=== PATIENT | female | born 1980 | race Caucasian/White ===

== ENCOUNTER 2016-09-22 07:09 | Emergency (ER) | payer OTHER ==
[2016-09-22 08:26] VITALS: BP 134/87
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
== END 2016-09-22 08:29 | disposition home or self-care (01) ==
LOC: ER 07:09
DX: S46.912A Strain of unspecified muscle, fascia and tendon at shoulder and upper arm level, left arm, initial encounter (principal); X58.XXXA Exposure to other specified factors, initial encounter; Y93.89 Activity, other specified; Y92.129 Unspecified place in nursing home as the place of occurrence of the external cause; Y99.0 Civilian activity done for income or pay; Z3A.30 30 weeks gestation of pregnancy; Z90.49 Acquired absence of other specified parts of digestive tract; M54.5 Low back pain

== ENCOUNTER 2016-10-28 06:57 | Observation (INO) | payer OTHER ==
--- OUTSIDE RECORDS SUMMARY | 2016-10-28 07:02 | XMS REPORT | Continuity of Care Document ---
:1980 Author Organization [facility] ([facility]) Address [address] [place] [address] Phone [phone] Care Team Providers Name Role Phone Fatmata Caraballo Primary Care Provider [phone] Source Comments This disclosure is being made pursuant to the Care Everywhere program, applicable federal and state laws, and may not contain all informaitonavailable regarding this patient.[facility] ([facility]) Active Allergies and Adverse Reactions Allergen Noted Date Severity Reactions Comments Codeine 01/31/2015 Nausea & Vomiting,Pruritus Current Medications Prescription Sig. Disp. Refills Start Date End Date Status multivitamin Take 2 Each by Active with minerals PO mouth. Gummies famotidine 10 mg tablet Take 10 mg by Active mouth 2 times daily pantoprazole 20 mg EC Take 20 mg by Active tablet mouth daily promethazine 12.5 mg Insert 25 mg Active suppository rectally every 6 hours as needed. promethazine 12.5 mg Take 25 mg by Active tablet mouth every 6 hours as needed. albuterol 90 Use 2 Puffs by Active mcg/Actuation inhaler inhalation every 6 hours as needed metoclopramide 10 mg Take 10 mg by Active tablet mouth 3 times daily. beclomethasone (QVAR) Use 1 Puff by Active 80 mcg/Actuation inhalation 2 inhaler times daily. 1 puff 2x/day cyclobenzaprine 5 mg Take 1 tablet (5 15 tablet 0 08/27/2016 Active tablet mg total) by mouth 3 times daily as needed. miscellaneous medical belt 1 Each 0 08/27/2016 Active supply use as directed Active Problems Problem Noted Date Dichorionic diamniotic twin gestation 06/14/2016 Advanced maternal age in multigravida 06/14/2016 History of delivery affecting 06/14/2016 Currently Estimated Date of Delivery Comments Yes 12/15/2016 Based on Last Menstrual Period Most Recent Encounters Date Type Specialty Providers Description 10/23/2016 Office Visit Maternal Chief Comp: Patient Medicine Reported Reason For Visit 10/23/2016 Office Visit Maternal Chief Comp: Patient Medicine Reported Reason For Visit 10/18/2016 Telephone Maternal Kirsten Wang, Dx: Dichorionic Medicine RN diamniotic twin , antepartum (Primary Dx) 08/30/2016 Telephone Pediatric Sherie Cabrera RN Chief Comp: Cardiology Follow-up 08/28/2016 Office Visit Maternal Chief Comp: Patient Medicine Reported Reason For Visit 08/27/2016 Office Visit Maternal Diamond Ddod, Dx: Low back pain Medicine DO during in Clinic, Hrob New second trimester Patient (Primary Dx) 08/27/2016 Hospital Encounter Pediatric Sterling Win Dx: Dichorionic Cardiology MD Josy diamniotic twin in first trimester 08/27/2016 Hospital Encounter Pediatric Sterling Win Dx: Dichorionic Cardiology MD Josy diamniotic twin in first trimester 08/27/2016 Hospital Encounter Pediatric Sterling Win Dx: Dichorionic Cardiology MD Josy diamniotic twin in first trimester 08/27/2016 Office Visit Maternal Cristine Amaya Dx: Advanced Medicine maternal age in multigravida, second trimester (Primary Dx) 08/27/2016 Hospital Encounter Obstetrics Cristine Amaya Dx: Dichorionic diamniotic twin in first trimester 08/27/2016 Ancillary Orders Obstetrics Aaron Kramer, Dx: Dichorionic diamniotic twin in second trimester (Primary Dx) 07/30/2016 Office Visit Maternal Jennifer Mcintosh I Chief Comp: Patient Medicine Reported Reason For Visit 07/30/2016 Hospital Encounter Obstetrics Jennifer Mcintosh I Dx: Dichorionic diamniotic twin in first trimester Social History Tobacco Use Types Packs/Day Years Used Date Former Smoker Cigarettes Quit: 08/15/2014 Smokeless Tobacco: Former User Alcohol Use Drinks/Week oz/Week Comments No 0 Standard drinks or equivalent 0.0 Last Filed Vital Signs Vital Sign Reading Time Taken Blood Pressure 120/67 08/27/2016 1:41 PM CUT PLUG PACKER Pulse 89 08/27/2016 1:41 PM CUT PLUG PACKER Temperature 36.6 C (97.9 F) 08/27/2016 1:41 PM C[employer] PLUG PACKER Respiratory Rate - - Height 1.589 m (5' 2.56") 08/27/2016 1:41 PM CUT PLUG PACKER Weight 70.8 kg (156 lb 1.4 oz) 08/27/2016 1:41 PM C[employer] PLUG PACKER Body Mass Index 28.04 08/27/2016 1:41 PM CUT PLUG PACKER Oxygen Saturation - - Plan of Care Date Type Specialty Providers Description 11/06/2016 Appointment Maternal Medicine Chief Comp: Patient Reported Reason For Visit 11/06/2016 Appointment Obstetrics Chief Comp: Patient Reported Reason For Visit Health Maintenance Due Date Last Done Comments Hepatitis B Vaccine (1 of 3 - Primary Series) 1980 Tdap Vaccine 12/06/1990 Lipid Disorder Screening 12/06/1997 MMR Vaccine 12/06/1997 Td Vaccine 12/06/1997 Varicella Vaccine (1 of 2 - Adult - No Evidence of 12/06/1997 Immunity) Cervical Cancer Screening 12/06/2009 Influenza Vaccine: Seasonal (#1) 04/15/2016 Results from Last 3 Months ECHO PEDS - ECHOCARDIOGRAM (08/27/2016 1:45 PM)Only the most recent of2 resultswithin the time period is included. Component Value Range Interpretation Summary Normal cardiac anatomy in views obtained. Normal biventricular size and function. No tricuspid valve regurgitation. No mitral valve regurgitation. Atria and Atrial Septum Flap of foramen ovale enters the left atrium. Normal left atrial size Normal right atrial size Right to left shunt seen at atrial level. Rhythm Twin B HR 153 bpm. with 1:1 AV conduction. Situs, Cardiac Position and Pulmonary Situs solitus. and Systemic Veins Levocardia The superior and inferior vena cava appear normal. Great Vessels and Ventricular-Arterial Normal left ventricular outflow tract. Connections Normal right ventricular outflow tract, pulmonary valve, main pulmonary artery and branch pulmonary arteries. Concordant ventriculoarterial connections. Ascending aortic velocity normal No aortic valve regurgitation. Normal flow velocities in the main, right and left pulmonary arteries. No pulmonic valve regurgitation. Atrioventricular Valves and AV Valve The mitral valve is normal. Function Two mitral valve papillary muscles seen. The tricuspid valve is normal. Concordant atrioventricular connections. No mitral valve regurgitation. No tricuspid valve regurgitation. Ventricles and Interventricular Septum The right ventricle is normal in size and systolic function. No ventricular septal defect seen in views obtained. The left ventricle is normal in size and systolic function. Aortic Arch/Paten Ductus Normal aortic and ductal arches. Ateriosus/Coronary Arteries Attributes Fetus at 24 2/7 weeks gestation. Expected date of delivery 12/15/2016. Multigestational 'Twins' . heart/chest ratio=0.5. Cardiac Artemas=50 degrees . Normal flow velocity and pattern in umbilical artery and vein. No hydrops seen. Thin rim of pericardial effusion seen. Primary ICD-9 Code 24 weeks gestation of (Z3A.24) Abnormality Affecting Mother's Care or Other Known/Supsected Abnormality, unspecified, multiple gestation, fetus 2 (O35.8XX2) Procedures PW and CW Doppler peformed as part of this study. Doppler assessment of Color Flow mapping performed as part of this study. 2D Echo performed as part of this study. Quality Comments Adequate images obtained. Patient's name and date were confirmed. MV lanre diam 0.63 cm MV lanre area 0.31 cm^2 TV lanre diam 0.57 cm MV E max mackenzie 25.7 cm/sec MV A max mackenzie 37.3 cm/sec MV E/A 0.69 Ao V2 max 93.5 cm/sec Ao max PG 3.5 mmHg TV E max mackenzie 26.3 cm/sec TV A max mackenzie 36.1 cm/sec TV E/A 0.73 PA V2 max 44.0 cm/sec PA max PG 0.77 mmHg Reason For Study Di Di twins and had FDT u/s to check nuchal measurements on , fetus A with thickened nuchal translucency Porcelain Enamel Repairer Flor Edmonds Interpreting Physician Sterling Win MD electronically signed on 2016-08-27 17:08:[id number] TRANSLATOR/INTERPRETER/ DIAGNOSIS ULTRASOUND (08/27/2016 10:27 AM)Only the most recent of2 resultswithin the time period is included. Narrative Obstetric Ultrasound Report Limited Scan Ref[facility] from: [facility] [address] Department of Obstetrics & Gynecology [place], [id number] [employer] [place], [id number] OB Clinic IVF/ Endocrine PATIENT INFORMATION: Name: KATIE MLYES#: [id number] Age:35 y/oExam Date: 08/27/2016 :1980 Visit #: 4 LMP:03/10/2016 Location: Diagnosis & Treatment Unit # Fetuses: 2 INDICATION:Dichorionic/Diamniotic twin gestation. Increased nuchal tranlucency of twin A. Growth and complete anatomy, TWINA Left, Inferior DATING: Assigned GA GA by LMPGA by US (LMP)JORDAN 24 2/7 wks 23 2/7 wks 24 2/7 wks 12/15/16 BIOMETRY: BPD: 57.1 mm23 3/7 wksHC:212.1 mm 23 2/7 wks(8%) (28%) Femur: 40.6 mm23 1/7 wksAC:203.9 mm 25 0/7 wks(59%) (10%) EFW: 683 gms1 lbs 8 oz (47%) Lat Ventricles: 6.2 mm Heart Rate: 147 bpm FL/AC:0.2FL/BPD: 0.71 PRESENTATION/CORD/PLACENTA/FLUID/CERVIX: Presentation: Breech Placenta: Posterior.There Is No Evidence Of Placenta Previa. Amniotic Fluid: Maximum Vertical Pocket=58 mm.Subjective AF Volume : Normal. Cervix: Overall Length:55mm, Normal ANATOMICAL SURVEY: Normal ------ Lateral Ventricles Palate Nose Lips Four Chamber ViewCardiac Artemas Cardiac Position Heart Rate DiaphragmStomach Kidney - LeftKidney - Right Bladder Abnormal -------- None identified TWINB Right, Superior DATING: Assigned GA GA by LMPGA by US (LMP)JORDAN 24 27 wks 22 7 wks 24 /7 wks 12/15/16 BIOMETRY: BPD: 53.4 mm22 2/7 wksHC:206.4 mm 22 5/7 wks(<3%) (<3%) Femur: 41.1 mm23 2/7 wksAC:185.0 mm 23 2/7 wks(13%) (15%) EFW: 594 gms1 lbs 5 oz (28%) Lat Ventricles: 5.9 mm Heart Rate: 132 bpm FL/AC:0.22 FL/BPD: 0.76 PRESENTATION/CORD/PLACENTA/FLUID/CERVIX: Presentation: Cephalic Placenta: Posterior.There Is No Evidence Of Placenta Previa. Amniotic Fluid: Maximum Vertical Pocket=50 mm.Subjective AF Volume : Normal. Cervix: Overall Length:55mm, Normal ANATOMICAL SURVEY: Normal ------ Lateral Ventricles Four Chamber View RVOT LVOT Cardiac Artemas Cardiac Position Heart Rate Diaphragm StomachKidney - Left Kidney - Right Bladder Foot - LeftFoot - Right Not Visualized Palate Nose Lips Abnormal -------- None identified EFW Summary Table Exam DateFetus #EFW Percentile ------ - 08/27/16 1 74400 % 08/27/16 2 26979 % 07/30/16 1 79915 % 07/30/16 2 83887 % AMNIOTIC FLUID VOLUME: Fetus A NORMALSubjective AF Volume: Normal.Maximum Vertical Pocket:58 mm Fetus B NORMALSubjective AF Volume: Normal.Maximum Vertical Pocket:50 mm CERVIX: Visualized Overall Length:55 mm Cervical Evaluation: Yes Cervical Approach: Transabdominal MULTIPLE GESTATION: Weight discordance:13% (Normal <20%).Dividing membrane was seen. Placentation is dichorionic, diamniotic. COMMENTS: I attest to having personally viewed the images and my comments and impression are as follows: The exam was limited to growth, fluid and limited anatomy. Dichorionic, diamniotic twin gestation. Twin IUP with concordant growth (14%). Twin A: The anatomical survey was completed on today's ultrasound. Twin B: The palate and lips were suboptimally visualized. Appropriate amniotic fluid around each twin. Recommend follow up growth ultrasounds monthly. This may be done locally or at [facility]. HROB and wellness appointments made. Mrs. Katie Merida is a 35 y/o patient status post two deliveries, now with di-di twins.This ultrasound is for a growth check.She is now 24 and 2/7 weeks gestation.The twins are condordant and well grown.The fluid is normal for both twins, and the placentas are posterior. The patient had questions about risks of twins, back pain, depression and one episode of blurry vision (blood pressure not checked).I offered her a one time consultation with our high risk and women's wellness clinic.Otherwise, she plans to continue to follow locally. Given her AMA status and di-di twins, we recommend monthly ultrasounds for growth and beginning weekly modified BPPs (NSTs with AFIs) weekly between 30 and 32 weeks.Those studies can be performed locally or at this institution, whichever is preferred. I spent 15 minutes in care coordination, of which more than 50% was in face to face counseling. Dr. Cristine Amaya MD ([id number]) Dr. Mgaalie Zuniga MD ([id number]) Porcelain Enamel Repairer: Susan Starks RDMS RVT Procedure Note Michael, Incoming Imaging Results - FriAug 27, 2016 10:40 AM CUT PLUG PACKER Obstetric Ultrasound Report Limited Scan Referral from: Dr. Fatmata Caraballo [facility] [address] Department of Obstetrics &[place] [address] [address] [place], [place] OB Clinic IVF/ Endocrine PATIENT INFORMATION: Name: KATIE MERIDA MR#: [id number] Age: 35 y/o Exam Date: 08/27/2016 : 1980 Visit #: 4 LMP: 03/10/2016 Location: Diagnosis & Treatment Unit # Fetuses: 2 INDICATION: Dichorionic/Diamniotic twin gestation. Increased nuchal tranlucency of twin A. Growth and complete anatomy, TWIN A Left, Inferior DATING: Assigned GA GA by LMP GA by US (LMP) JORDAN 24 2/7 wks 23 2/7 wks 24 2/7 wks 12/15/16 BIOMETRY: BPD: 57.1 mm 23 3/7 wks HC: 212.1 mm 23 2/7 wks (8%) (28%) Femur: 40.6 mm 23 1/7 wks AC: 203.9 mm 25 0/7 wks(59%) (10%) EFW: 683 gms 1 lbs 8 oz (47%) Lat Ventricles: 6.2 mm Heart Rate: 147 bpm FL/AC: 0.2 FL/BPD: 0.71 PRESENTATION/CORD/PLACENTA/FLUID/CERVIX: Presentation: Breech Placenta: Posterior. There Is No Evidence Of Placenta Previa. Amniotic Fluid: Maximum Vertical Pocket=58 mm. Subjective AFVolume: Normal. Cervix: Overall Length: 55mm, Normal ANATOMICAL SURVEY: Normal ------ Lateral Ventricles Palate Nose Lips Four Chamber View Cardiac Artemas Cardiac Position Heart Rate Diaphragm Stomach Kidney - Left Kidney - Right Bladder Abnormal -------- None identified TWIN B Right, Superior DATING: Assigned GA GA by LMP GA by US (LMP) JORDAN 24 10/22 wks 22 12/20 wks 24 10/22 wks 12/15/16 BIOMETRY: BPD: 53.4 mm 22 7 wks HC: 206.4 mm 22 01/19 wks(<3%) (<3%) Femur: 41.1 mm 23 10/22 wks AC: 185.0 mm 23 10/22 wks(13%) (15%) EFW: 594 gms 1 lbs 5 oz (28%) Lat Ventricles: 5.9 mm Heart Rate: 132 bpm FL/AC: 0.22 FL/BPD: 0.76 PRESENTATION/CORD/PLACENTA/FLUID/CERVIX: Presentation: Cephalic Placenta: Posterior. There Is No Evidence Of Placenta Previa. Amniotic Fluid: Maximum Vertical Pocket=50 mm. Subjective AFVolume: Normal. Cervix: Overall Length: 55mm, Normal ANATOMICAL SURVEY: Normal ------ Lateral Ventricles Four Chamber View RVOT LVOT Cardiac Artemas Cardiac Position Heart Rate Diaphragm Stomach Kidney - Left Kidney - Right Bladder Foot - Left Foot - Right Not Visualized Palate Nose Lips Abnormal -------- None identified EFW Summary Table Exam Date Fetus # EFW Percentile --------- ------- ---- 08/27/16 1 683 47 % 08/27/16 2 594 28 % 07/30/16 1 350 48 % 07/30/16 2 334 42 % AMNIOTIC FLUID VOLUME: Fetus A NORMAL Subjective AF Volume: Normal. Maximum Vertical Pocket: 58 mm Fetus B NORMAL Subjective AF Volume: Normal. Maximum Vertical Pocket: 50 mm CERVIX: Visualized Overall Length: 55 mm Cervical Evaluation: Yes Cervical Approach: Transabdominal MULTIPLE GESTATION: Weight discordance: 13% (Normal <20%). Dividing membrane was seen. Placentation is dichorionic, diamniotic. COMMENTS: I attest to having personally viewed the images and my comments and impression are as follows: The exam was limited to growth, fluid and limited anatomy. Dichorionic, diamniotic twin gestation. Twin IUP with concordant growth (14%). Twin A: The anatomical survey was completed on today's ultrasound. Twin B: The palate and lips were suboptimally visualized. Appropriate amniotic fluid around each twin. Recommend follow up growth ultrasounds monthly. This may be donelocally or at [facility]. HROB and wellness appointments made. Mrs. Katie Merida is a 35 y/o patient status post two deliveries, now with di-di twins. This ultrasound is for a growth check. She is now 24 and 2/7 weeks gestation. The twins are condordant and well grown. The fluid is normal for both twins, and the placentas are posterior. The patient had questions about risks of twins, back pain, depression and one episode of blurry vision (blood pressure not checked). I offered her a one time consultation with our high risk and women's wellness clinic. Otherwise, she plans to continue to follow locally. Given her AMA status and di-di twins, we recommend monthly ultrasounds for growth and beginning weekly modified BPPs (NSTs with AFIs) weekly between 30 and 32 weeks. Those studies can be performed locally or at this institution, whichever is preferred. I spent 15 minutes in care coordination, of which more than 50% was in face to face counseling. Dr. Cristine Amaya MD ([id number]) Dr. Magalie Zuniga MD ([id number]) Porcelain Enamel Repairer: Susan Starks RDMS T
[2016-10-28] MEDS ORDERED: RINGERS SOLUTION,LACTATED 1,000 ML IV ONE (07:22)
[2016-10-28 08:15] LABS: Urine Bilirubin Negative (NEGATIVE); Urine Ketone Negative (NEGATIVE); Urine Nitrite Negative (NEGATIVE); Urine Protein Negative (NEGATIVE); Urine Specific Gravity 1.015 SP.GR. (1.005-1.010); Urine Urobilinogen Normal (NORMAL)
[2016-10-28 08:50] LABS: Urine Appearance Clear; Urine Blood 10 /ul (NEGATIVE); Urine Color Yellow
[2016-10-28 08:51] LABS: Urine Bacteria 1+; Urine RBC TRACE /hpf (0-5); Urine Squamous Epithelial Cell None Seen /hpf; Urine WBC None Seen /hpf (0-5)
[2016-10-28] MEDS ORDERED: HYDROcodone/ACETAMINOPHEN 1 EACH TABLET PO ONE (10:00)
[2016-10-28] MEDS ORDERED: hydrOXYzine PAMOATE 25 MG CAPSULE PO ONE (10:00)
--- OUTSIDE RECORDS SUMMARY | 2016-10-28 12:10 | XMS REPORT | Continuity of Care Document ---
:1980 Author Organization [facility] ([facility]) Address [address] [place] [address] Phone [phone] Care Team Providers Name Role Phone Fatmata Caraballo Primary Care Provider [phone] Source Comments This disclosure is being made pursuant to the Care Everywhere program, applicable federal and state laws, and may not contain all informaitonavailable regarding this patient.[facility] ([facility]) Active Allergies and Adverse Reactions Allergen Noted [...] Recent Encounters Date Type Specialty Providers Description 10/28/2016 Hospital Encounter Patient Services 10/23/2016 Office Visit Maternal Chief Comp: Patient [...] For Visit 08/27/2016 Office Visit Maternal Diamond Dodd, Dx: Low back pain Medicine DO during in Clinic, Hrob New second trimester Patient (Primary Dx) 08/27/2016 Hospital Encounter Pediatric Sterling Win Dx: Dichorionic Cardiology MD Josy diamniotic twin in first trimester 08/27/2016 Hospital Encounter Pediatric Sterling Win Dx: Dichorionic Cardiology MD Josy diamniotic twin in first trimester 08/27/2016 Hospital Encounter Pediatric Sterling Win Dx: Dichorionic Lizzette Ferris MD diamniotic twin in first trimester 08/27/2016 Office Visit Maternal Cristine Amaya Dx: Advanced Medicine maternal age in multigravida, second trimester (Primary Dx) 08/27/2016 Hospital Encounter Obstetrics Cristine Amaya Dx: Dichorionic diamniotic twin in first trimester 08/27/2016 Ancillary Orders Obstetrics Aaron Kramer Dx: Dichorionic diamniotic twin in second trimester (Primary Dx) 07/30/2016 Office Visit Maternal Jennifer Mcintosh I Chief Comp: Patient Medicine MD Reported Reason For Visit 07/30/2016 Hospital Encounter Obstetrics Jennifer Mcintosh I Dx: Dichorionic diamniotic twin in first trimester Social History Tobacco Use Types Packs/Day Years Used Date Former Smoker Cigarettes Quit: 08/15/2014 Smokeless Tobacco: Former User Alcohol Use Drinks/Week oz/Week Comments No 0 Standard drinks or equivalent 0.0 Last Filed Vital Signs Vital Sign Reading Time Taken Blood Pressure 120/67 08/27/2016 1:41 PM GUEST EXPERIENCE REPRESENTATIVE Pulse 89 08/27/2016 1:41 PM GUEST EXPERIENCE REPRESENTATIVE Temperature 36.6 C (97.9 F) 08/27/2016 1:41 PM GUEST EXPERIENCE REPRESENTATIVE Respiratory Rate - - Height 1.589 m (5' 2.56") 08/27/2016 1:41 PM GUEST EXPERIENCE REPRESENTATIVE Weight 70.8 kg (156 lb 1.4 oz) 08/27/2016 1:41 PM GUEST EXPERIENCE REPRESENTATIVE Body Mass Index 28.04 08/27/2016 1:41 PM GUEST EXPERIENCE REPRESENTATIVE Oxygen Saturation - - Plan of Care [...] 12/15/2016. Multigestational 'Twins' . heart/chest ratio=0.5. Cardiac [place]=50 degrees . Normal flow velocity and pattern [...] , fetus A with thickened nuchal translucency Supervisor Cloth Winding Flor Edmonds Interpreting Physician Sterling Win MD electronically signed on 2016-08-27 17:08:[id number] SPANISH LECTURER/ DIAGNOSIS ULTRASOUND (08/27/2016 10:27 AM)Only the most recent of2 resultswithin the time period is included. Narrative Obstetric Ultrasound Report Limited Scan [facility]: [facility] [address] Department of Obstetrics & Gynecology [place], [id number] [facility] [id number] OB Clinic IVF/ Endocrine PATIENT INFORMATION: Name: KATIE MYLES#: [id number] Age:35 y/oExam Date: 08/27/2016 :1980 Visit #: [...] Ventricles Palate Nose Lips Four Chamber ViewCardiac [place] Cardiac Position Heart Rate DiaphragmStomach Kidney - LeftKidney - Right Bladder Abnormal -------- None identified TWINB Right, Superior DATING: Assigned GA GA by LMPGA by US (LMP)JORDAN 24 7 wks 22 7 wks 24 7 wks 12/15/16 BIOMETRY: BPD: 53.4 mm22 2/7 [...] Ventricles Four Chamber View RVOT LVOT Cardiac [place] Cardiac Position Heart Rate Diaphragm StomachKidney - Left Kidney - Right Bladder Foot - LeftFoot - Right Not Visualized Palate Nose Lips Abnormal -------- None identified EFW Summary Table Exam DateFetus #EFW Percentile ------ - 08/27/16 1 70057 % 08/27/16 2 36231 % 07/30/16 1 42763 % 07/30/16 2 07419 % AMNIOTIC FLUID VOLUME: Fetus A NORMALSubjective [...] This may be done locally or at [facility]. HROB and wellness appointments made. Mrs. Katie [...] MD ([id number]) Dr. Magalie Zuniga MD ([id number]) Supervisor Cloth Winding: Susan Starks RDMS RVT Procedure Note Michael, Incoming Imaging Results - FriAug 27, 2016 10:40 AM GUEST EXPERIENCE REPRESENTATIVE Obstetric Ultrasound Report Limited Scan Referral from: Dr. Fatmata Caraballo [facility] [address] Department of Obstetrics &[place] [address] [address] [place], [place] OB Clinic IVF/ Endocrine PATIENT INFORMATION: Name: KATIE MERIDA MR#: [id number] Age: 35 y/o Exam Date: 08/27/2016 : [...] Palate Nose Lips Four Chamber View Cardiac [place] Cardiac Position Heart Rate Diaphragm Stomach Kidney - Left Kidney - Right Bladder Abnormal -------- None identified TWIN B Right, Superior DATING: Assigned GA GA by LMP GA by US (LMP) JORDAN 24 10/22 wks 22 12/20 wks 24 7 wks 12/15/16 BIOMETRY: BPD: 53.4 mm 22 2/7 wks HC: 206.4 mm 22 7 wks(<3%) (<3%) Femur: 41.1 mm 23 7 wks AC: 185.0 mm 23 /7 wks(13%) (15%) EFW: 594 gms 1 lbs 5 oz (28%) Lat Ventricles: 5.9 mm Heart Rate: 132 bpm FL/AC: 0.22 FL/BPD: 0.76 PRESENTATION/CORD/PLACENTA/FLUID/CERVIX: Presentation: Cephalic Placenta: Posterior. There Is No Evidence Of Placenta Previa. Amniotic Fluid: Maximum Vertical Pocket=50 mm. Subjective AFVolume: Normal. Cervix: Overall Length: 55mm, Normal ANATOMICAL SURVEY: Normal ------ Lateral Ventricles Four Chamber View RVOT LVOT Cardiac [place] Cardiac Position Heart Rate Diaphragm Stomach Kidney [...] monthly. This may be donelocally or at [facility]. HROB and wellness appointments made. Mrs. Katie [...] MD ([id number]) Dr. Magalie Zuniga MD ([id number]) Supervisor Cloth Winding: PAMELA PaceT
[2016-10-28] MEDS ORDERED: NIFEdipine 10 MG CAPSULE PO STA (12:11)
[2016-10-28 12:15] VITALS: BP 123/71
[2016-10-28] MEDS ORDERED: BETAMETH ACET/BETAMET SOD PHOS 6 MG/ML VIAL IM ONE (12:15)
== END 2016-10-28 12:50 | disposition short-term general hospital (02) ==
LOC: OBCLINIC 06:57 → INTOOBSV 12:05 → OB 12:05
PROVIDERS: ADMIT Obstetrics & Gynecology; ATTEND Obstetrics & Gynecology
DX: O60.03 Preterm labor without delivery, third trimester (principal); O30.043 Twin pregnancy, dichorionic/diamniotic, third trimester; O09.523 Supervision of elderly multigravida, third trimester; Z3A.33 33 weeks gestation of pregnancy
CPT/HCPCS: 59025; 81001; 87081; 96372; G0378

== ENCOUNTER 2016-11-26 04:54 | Inpatient (IN) | payer OTHER ==
--- OUTSIDE RECORDS SUMMARY | 2016-11-26 05:00 | XMS REPORT | Continuity of Care Document ---
:1980 Author Organization [facility] ([facility]) Address [address] [place] [address] Phone [phone] Care Team Providers Name Role Phone Fatmata Caraballo Primary Care Provider [phone] Source Comments This disclosure is being made pursuant to the Care Everywhere program, applicable federal and state laws, and may not contain all informaitonavailable regarding this patient.[facility] ([facility]) Active Allergies and Adverse Reactions Allergen Noted Date Severity Reactions Comments Codeine 01/31/2015 Nausea & Vomiting,Pruritus Current Medications Prescription Sig. Disp. Refills Start End Status Date Date famotidine 10 mg Take 10 mg by mouth Active tablet 2 times daily pantoprazole 20 mg Take 20 mg by mouth Active EC tablet daily promethazine 12.5 Insert 25 mg Active mg suppository rectally every 6 hours as needed. promethazine 12.5 Take 25 mg by mouth Active mg tablet every 6 hours as needed. albuterol 90 Use 2 Puffs by Active mcg/Actuation inhalation every 6 inhaler hours as needed metoclopramide 10 Take 10 mg by mouth Active mg tablet 3 times daily. beclomethasone Use 1 Puff by Active (QVAR) 80 inhalation 2 times mcg/Actuation daily. 1 puff inhaler 2x/day cyclobenzaprine 5 Take 1 tablet (5 mg 15 tablet 0 Active mg tablet total) by mouth 3 6 times daily as needed. miscellaneous belt use 1 Each 0 Active medical supply as directed 6 HYDROcodone-acetami Take 1 tablet by Active nophen 5-325 mg per mouth every 12 tablet hours as needed for Pain. betamethasone Inject 2 mL (12 mg 2 mL 0 Active (CELESTONE total) 7 SOLUSPAN) 6 mg/mL intramuscularly injection once. Take 2 Each by Discontinued multivitamin with mouth. Gummies 017 minerals PO Active Problems Problem Noted Date Dichorionic diamniotic twin gestation 06/14/2016 Advanced maternal age in multigravida 06/14/2016 History of delivery affecting 06/14/2016 Currently Estimated Date of Delivery Comments Yes 12/15/2016 Based on Last Menstrual Period Most Recent Encounters Date Type Specialty Providers Description 11/06/2016 Hospital Encounter Obstetrics Nixon, Dx: Dichorionic MD Karen diamniotic twin , antepartum 11/06/2016 Office Visit Maternal Nixon, Dx: Advanced Medicine MD Karen maternal age in multigravida, third trimester (Primary Dx) 11/06/2016 Office Visit Maternal Chief Comp: Patient Medicine Reported Reason For Visit 10/28/2016 Hospital Encounter General Care Jessica Draper Dx: Dichorionic Inpatient - Adult MD Catherine diamniotic twin Diamond Dodd A, in third DO trimester (Primary Dx) 10/28/2016 Hospital Encounter General Care Inpatient - Adult 10/28/2016 Anesthesia Event General Care Jenni Winchester, Inpatient - Adult 10/23/2016 Office Visit Maternal Chief Comp: Patient Medicine Reported Reason For Visit 10/23/2016 Office Visit Maternal Chief Comp: Patient Medicine Reported Reason For Visit 10/18/2016 Telephone Maternal Kirsten Wang, Dx: Dichorionic Medicine RN diamniotic twin , antepartum (Primary Dx) 08/30/2016 Telephone Pediatric Sherie Cabrera, Chief Comp: fiber optic assembler Follow-up 08/28/2016 Office Visit Maternal Chief Comp: Patient Medicine Reported Reason For Visit Social History Tobacco Use Types Packs/Day Years Used Date Former Smoker Cigarettes Quit: 08/15/2014 Smokeless Tobacco: Former User Alcohol Use Drinks/Week oz/Week Comments No 0 Standard drinks or equivalent 0.0 Last Filed Vital Signs Vital Sign Reading Time Taken Blood Pressure 118/81 10/28/2016 2:39 PM DATAWAREHOUSE DEVELOPER Pulse 89 10/28/2016 2:39 PM DATAWAREHOUSE DEVELOPER Temperature 36.9 C (98.4 F) 10/28/2016 2:39 PM DATAWAREHOUSE DEVELOPER Respiratory Rate 18 10/28/2016 2:39 PM DATAWAREHOUSE DEVELOPER Height 1.589 m (5' 2.56") 08/27/2016 1:41 PM DATAWAREHOUSE DEVELOPER Weight 70.8 kg (156 lb 1.4 oz) 08/27/2016 1:41 PM DATAWAREHOUSE DEVELOPER Body Mass Index 28.04 08/27/2016 1:41 PM DATAWAREHOUSE DEVELOPER Oxygen Saturation 100% 10/28/2016 2:39 PM DATAWAREHOUSE DEVELOPER Plan of Care Health Maintenance Due Date Last Done Comments Hepatitis B Vaccine (1 of 3 - Primary Series) 1980 Tdap Vaccine 12/06/1990 Lipid Disorder Screening 12/06/1997 MMR Vaccine 12/06/1997 Td Vaccine 12/06/1997 Varicella Vaccine (1 of 2 - Adult - No Evidence of 12/06/1997 Immunity) Cervical Cancer Screening 12/06/2009 Influenza Vaccine: Seasonal (#1) 04/15/2016 Results from Last 3 Months ASSISTANT BRANCH OPERATIONS MANAGER/ DIAGNOSIS ULTRASOUND (11/06/2016 12:44 PM) Narrative Obstetric Ultrasound Report Limited Scan Referral from: Dr. Fatmata mcneill [address] Department of Obstetrics & Gynecology [place] [id number] [facility] [place], [place] OB Clinic IVF/ Endocrine PATIENT INFORMATION: Name: KATIE MYLES#: [id number] Age:35 y/oExam Date: 11/06/2016 :1980 Visit #: 5 LMP:03/10/2016 Location: Diagnosis & Treatment Unit # Fetuses: 2 INDICATION:Dichorionic-diamniotic twin gestation. Increased nuchal tranlucency of twin A. Twin B IUGR locally. Check growth. TWINA Left, Superior DATING: Assigned GA GA by LMPGA by US (LMP)JORDAN 34 3/7 wks 33 1/7 wks 34 3/7 wks 12/15/16 BIOMETRY: BPD: 81.0 mm32 4/7 wksHC:305.3 mm 34 0/7 wks(22%) (12%) Femur: 65.2 mm33 4/7 wksAC:295.0 mm 33 3/7 wks(36%) (39%) EFW: 2190 gms4 lbs 13 oz (41%) Lat Ventricles: 3.3 mm Heart Rate: 138 bpm FL/AC:0.22 FL/BPD: 0.80 PRESENTATION/CORD/PLACENTA/FLUID/CERVIX: Presentation: Cephalic Amniotic Fluid: Maximum Vertical Pocket=40 mm.Subjective AF Volume : Normal. ANATOMICAL SURVEY: Normal ------ Lateral Ventricles Four Chamber View Cardiac [place] Cardiac Position Heart Rate Diaphragm StomachKidney - Left Kidney - Right Bladder Abnormal -------- None identified TWINB Right, Inferior DATING: Assigned GA GA by LMPGA by US (LMP)JORDAN 34 3/7 wks 31 2/7 wks 34 3/7 wks 12/15/16 BIOMETRY: BPD: 81.7 mm32 6/7 wksHC:290.5 mm 32 0/7 wks(4%) (17%) Femur: 60.0 mm31 2/7 wksAC:270.9 mm 31 1/7 wks(6%) (8%) EFW: 1759 gms3 lbs 14 oz (12%) Lat Ventricles: 5.0 mm Heart Rate: 149 bpm FL/AC:0.22 FL/BPD: 0.73 PRESENTATION/CORD/PLACENTA/FLUID/CERVIX: Presentation: Cephalic Placenta: Posterior.There Is No Evidence Of Placenta Previa. Amniotic Fluid: Maximum Vertical Pocket=42 mm.Subjective AF Volume : Normal. ANATOMICAL SURVEY: Normal ------ Lateral Ventricles Four Chamber View Cardiac [place] Cardiac Position Heart Rate Diaphragm StomachKidney - Left Kidney - Right Bladder Abnormal -------- None identified EFW Summary Table Exam DateFetus #EFW Percentile ------ - 90 41 % 1759 12 % 08/27/16 1 23425 % 08/27/16 2 48120 % 07/30/16 1 16799 % 07/30/16 2 38931 % AMNIOTIC FLUID VOLUME: Fetus A NORMALSubjective AF Volume: Normal.Maximum Vertical Pocket:40 mm Fetus B NORMALSubjective AF Volume: Normal.Maximum Vertical Pocket:42 mm CERVIX: Suboptimal visualization MULTIPLE GESTATION: Weight discordance:20% (Normal <20%).Dividing membrane was seen. Placentation is dichorionic, diamniotic. COMMENTS: I attest to having personally viewed the images and my comments and impression are as follows: The exam was limited due to the late gestational age. Dichorionic, diamniotic twin gestation. Twin IUP with discordant growth at 20%. Twin A left superior Appropriate fluid. Twin B right inferior Presenting twin. Appropriate fluid. I discussed the above ultrasound results with the patient. After relaying the results of the ultrasound to the patient, I spent an additional 10 minutes in [id number]-dsti time with the patient.More than 50% of that time was in counseling and/or coordination of care.The issues we discussed are as follows: CONSULTATION: Katie Merida is a 35 y.o. at 34w3d.She presents for ultrasound and [facility] consultation due to dichorionic-diamniotic twin gestation with concern for IUGR of twin B on local ultrasound.The is also complicated by AMA, three prior deliveries (posterior placenta this ), and finding of increased nuchal translucency for Twin A (nuchal fold at upper limit of normal, declined amnio, normal echo). IMPRESSION: 1. Intrauterine at 34w3d 2. Dichorionic diamniotic twin gestation with growth discordance of 20% DISCUSSION AND RECOMMENDATIONS: We discussed that discordant growth in women with twin gestation is most commonly defined as a 20% difference in EFW between the larger and smaller fetus (ACOG 2016).Selective growth restriction has conventionally been defined as a condition in which one fetus has EFW <10th percentile and the intertwin EFW discordance is >25% (ISUOG 2016). Whether growth-discordant twin gestations (without a structural anomaly, aneuploidy, discordant infection, oligohydramnios, or growth restriction) are at increased risk for adverse outcomes is debatable.Several studies that examined this population have shown that multifetal gestations with discordant but appropriate-for- gestational-age growth are not at increased risk of or morbidity and mortality (ACOG 2016).Aneuploidy has not been ruled out in this case.However, in this case neither twin meets criteria for growth restriction (Twin A EFW 41st percentile; Twin B EFW 12th percentile, AC 6th percentile); the fluid is appropriate for both twins; and the sexes are discordant (Twin A male, Twin B female). I recommend continuing surveillance with weekly modified BPPs (NSTs with AFIs) until delivery at 37-38 weeks gestation. No further appointments were scheduled at this time. Thank you for the opportunity to participate in the care of this patient. Please contact me if you have any questions. Staff Only Dr. Karen Alicea MD ([id number]) Printed Circuit Boards Solder Leveler: Sherry Hutson RDMS,RVT Procedure Note Michael, Incoming Imaging Results - FriNov 08, 2016 3:51 PM DATAWAREHOUSE DEVELOPER Obstetric Ultrasound Report Limited Scan Referral from: Dr. Fatmata Caraballo [facility] [address] Department of Obstetrics &[place] [address] [place], [place] [address], [id number] OB Clinic IVF/ Endocrine PATIENT INFORMATION: Name: KATIE MERIDA MR#: [id number] Age: 35 y/o Exam Date: 11/06/2016 : 1980 Visit #: 5 LMP: 03/10/2016 Location: Diagnosis & Treatment Unit # Fetuses: 2 INDICATION: Dichorionic-diamniotic twin gestation. Increased nuchal tranlucency of twin A. Twin B IUGR locally. Check growth. TWIN A Left, Superior DATING: Assigned GA GA by LMP GA by US (LMP) JORDAN 34 3/7 wks 33 1/7 wks 34 3/7 wks 12/15/16 BIOMETRY: BPD: 81.0 mm 32 4/7 wks HC: 305.3 mm 34 0/7 wks(22%) (12%) Femur: 65.2 mm 33 4/7 wks AC: 295.0 mm 33 3/7 wks(36%) (39%) EFW: 2190 gms 4 lbs 13 oz(41%) Lat Ventricles: 3.3 mm Heart Rate: 138 bpm FL/AC: 0.22 FL/BPD: 0.80 PRESENTATION/CORD/PLACENTA/FLUID/CERVIX: Presentation: Cephalic Amniotic Fluid: Maximum Vertical Pocket=40 mm. Subjective AFVolume: Normal. ANATOMICAL SURVEY: Normal ------ Lateral Ventricles Four Chamber View Cardiac [place] Cardiac Position Heart Rate Diaphragm Stomach Kidney - Left Kidney - Right Bladder Abnormal -------- None identified TWIN B Right, Inferior DATING: Assigned GA GA by LMP GA by US (LMP) JORDAN 34 3/7 wks 31 2/7 wks 34 3/7 wks 12/15/16 BIOMETRY: BPD: 81.7 mm 32 6/7 wks HC: 290.5 mm 32 0/7 wks (4%) (17%) Femur: 60.0 mm 31 2/7 wks AC: 270.9 mm 31 1/7 wks (6%) (8%) EFW: 1759 gms 3 lbs 14 oz(12%) Lat Ventricles: 5.0 mm Heart Rate: 149 bpm FL/AC: 0.22 FL/BPD: 0.73 PRESENTATION/CORD/PLACENTA/FLUID/CERVIX: Presentation: Cephalic Placenta: Posterior. There Is No Evidence Of Placenta Previa. Amniotic Fluid: Maximum Vertical Pocket=42 mm. Subjective AFVolume: Normal. ANATOMICAL SURVEY: Normal ------ Lateral Ventricles Four Chamber View Cardiac [place] Cardiac Position Heart Rate Diaphragm Stomach Kidney - Left Kidney - Right Bladder Abnormal -------- None identified EFW Summary Table Exam Date Fetus # EFW Percentile --------- ------- ---- 11/06/16 1 2190 41 % 11/06/16 2 1759 12 % 08/27/16 1 683 47 % 08/27/16 2 594 28 % 07/30/16 1 350 48 % 07/30/16 2 334 42 % AMNIOTIC FLUID VOLUME: Fetus A NORMAL Subjective AF Volume: Normal. Maximum Vertical Pocket: 40 mm Fetus B NORMAL Subjective AF Volume: Normal. Maximum Vertical Pocket: 42 mm CERVIX: Suboptimal visualization MULTIPLE GESTATION: Weight discordance: 20% (Normal <20%). Dividing membrane was seen. Placentation is dichorionic, diamniotic. COMMENTS: I attest to having personally viewed the images and my comments and impression are as follows: The exam was limited due to the late gestational age. Dichorionic, diamniotic twin gestation. Twin IUP with discordant growth at 20%. Twin A left superior Appropriate fluid. Twin B right inferior Presenting twin. Appropriate fluid. I discussed the above ultrasound results with the patient. After relaying the results of the ultrasound to the patient, I spent an additional 10 minutes in cmbr-lv-uaih time with the patient. More than 50% of that time was in counseling and/or coordination of care. The issues we discussed are as follows: CONSULTATION: Katie Merida is a 35 y.o. at 34w3d. She presents for ultrasound and MFM consultation due to dichorionic-diamniotic twin gestation with concern for IUGR of twin B on local ultrasound. The is also complicated by AMA, three prior deliveries (posterior placenta this ), and finding of increased nuchal translucency for Twin A (nuchal fold at upper limit of normal, declined amnio, normal echo). IMPRESSION: 1. Intrauterine at 34w3d 2. Dichorionic diamniotic twin gestation with growth discordance of 20% DISCUSSION AND RECOMMENDATIONS: We discussed that discordant growth in women with twin gestation is most commonly defined as a 20% difference in EFW between the larger and smaller fetus (ACOG 2016). Selective growth restriction has conventionally been defined as a condition in which one fetus has EFW <10th percentile and the intertwin EFW discordance is >25% ([id number]). Whether growth-discordant twin gestations (without a structural anomaly, aneuploidy, discordant infection, oligohydramnios, or growth restriction) are at increased risk for adverse outcomes is debatable. Several studies that examined this population have shown that multifetal gestations with discordant but appropriate-for- gestational-age growth are not at increased risk of or morbidity and mortality (ACOG 2016). Aneuploidy has not been ruled out in this case. However, in this case neither twin meets criteria for growth restriction (Twin A EFW 41st percentile; Twin B EFW 12th percentile, AC 6th percentile); the fluid is appropriate for bothtwins; and the sexes are discordant (Twin A male, Twin B female). I recommend continuing surveillance with weekly modified BPPs (NSTs with AFIs) until delivery at 37-38 weeks gestation. No further appointments were scheduled at this time. Thank you for the opportunity to participate in the care of this patient. Please contact me if you have any questions. Staff Only Dr. Karen Alicea MD ([id number]) Printed Circuit Boards Solder Leveler: Sherry Hutson RDMS,RVT NEISSERIA GONORRHOEAE PCR (10/28/2016 5:23 PM) Component Value Range Gonorrhea PCR Negative Negative Specimen Other - Urine, Midstream clean catch Narrative Test methodology:PCR amplification; CT/NG Assay ([employer]) CHLAMYDIA TRACHOMATIS DETECTION BY PCR (10/28/2016 5:23 PM) Component Value Range Chlamydia Trach PCR Negative Negative Specimen Other - Urine, Midstream clean catch Narrative Test methodology:PCR amplification; CT/NG Assay ([employer]) GROUP B STREPTOCOCCUS PCR (10/28/2016 3:58 PM) Component Value Range GRPBPCR Negative Negative Specimen Vaginal/Rectal Narrative Test methodology:Nucleic acid amplification; illumigene Assay (Agent Ace) The performance characteristics of this test were determined by the [facility] Molecular Pathology Laboratory.It has not been cleared or approved by the U.S. Food and DrugAdministration (FDA). The FDA has determined that such clearance or approval is not necessary.This test is for clinical purposes.It should not be regarded as investigational or for research. The laboratory is certified under the Clinical Laboratory Improvement Amendments of 1988 (CLIA) as qualified to perform high complexity clinical laboratory testing. MICROSCOPIC URINALYSIS (10/28/2016 3:49 PM) Component Value Range White Blood Cells, Urine <1 0-5 /HPF Red Blood Cells, Urine <1 0-2 /HPF Squamous Epithelial Cells, Urine 8 <=10 /LPF Specimen Urine URINALYSIS WITH REFLEX CULTURE (10/28/2016 3:49 PM) Component Value Range Color, Urine Straw Straw, Pale Yellow, Yellow, Clear, None Clarity, Urine Clear Clear pH, Urine 8.0 <9.0 Spec Griffin, Urine <1.005 1.000-1.030 Glucose, Urine Negative Negative Blood, Urine Negative Negative Ketones, Urine 1+(A) Negative Protein, Urine Negative Negative Urobilinogen, Urine Normal Normal Bilirubin, Urine Negative Negative Leukocyte Esterase, Urine Negative Negative Nitrite, Urine Negative Negative Specimen Urine URINALYSIS WITH REFLEXED CULTURE AND MICROSCOPIC EXAM (10/28/2016 3:49 PM) Specimen Culture - Urine, Midstream clean catch Narrative The following orders were created for panel order URINALYSIS WITH REFLEXED CULTURE AND MICROSCOPIC EXAM. Procedure Abnormality Status --------- ------ URINALYSIS WITH REFLEX C...[[id number]]AbnormalFinal result MICROSCOPIC URINALYSIS[[id number]] Normal Final result URINE CULTURE, REFLEXED[[id number]] Please view results for these tests on the individual orders.
[2016-11-26] MEDS ORDERED: ceFAZolin SODIUM/DEXTROSE,ISO 2 GM in Premix Bag 1 BAG IV ONE (05:08)
[2016-11-26] MEDS ORDERED: RINGERS SOLUTION,LACTATED 1,000 ML IV PRN ×2 (05:08→10:53)
[2016-11-26] MEDS: RINGERS SOLUTION,LACTATED 1,000 ML IV PRN ×2 (06:29→10:26)
[2016-11-26] MEDS ORDERED: ceFAZolin SODIUM 2 GM in DEXTROSE 5 % IN WATER 50 ML IV PRN ×2 (07:00)
[2016-11-26] MEDS ORDERED: ONDANSETRON HCL/PF 2 MG/ML VIAL IV PRN ×3 (07:25→10:53)
[2016-11-26] MEDS ORDERED: PROMETHAZINE HCL 12.5 MG in DEXTROSE 5 % IN WATER 50 ML IV PRN ×4 (07:25→10:53)
[2016-11-26] MEDS ORDERED: RINGERS SOLUTION,LACTATED 800 ML IV ONE (08:00)
[2016-11-26] MEDS: OXYTOCIN 20 UNITS in RINGERS SOLUTION,LACTATED 1,000 ML IV ONE ×2 (08:33→11:09)
[2016-11-26] MEDS ORDERED: CALCIUM CARBONATE 500 MG TAB.CHEW PO PRN ×2 (09:43→10:53)
[2016-11-26] MEDS ORDERED: PROMETHAZINE HCL 25 MG TABLET PO PRN ×2 (09:43→10:53)
--- NOTE | 2016-11-26 09:52 | OR ---
Operative Report - Dictated Report Narrative: Operative report: 11/26/2016 Preoperative diagnosis: Prior , 37.2 weeks with di-amniotic dichorionic twins, preeclampsia, history of labor status post betamethasone, anxiety, ADD, chronic back pain, GERD, asthma, desires permanent sterilization Postoperative diagnosis: Same Procedure: Repeat low-transverse section, bilateral salpingectomies Surgeon: Fatmata Caraballo D.O. [employer] Laborer: Or staff Anesthesia: Spinal IV fluids: 1600 Milliliters Urine output: 100 Milliliters EBL: 300 Milliliters Findings: Normal appearing uterus, tubes, and ovaries, at 0831 male was born with Apgars of 9 and 9 and a weight of 6 pounds 1.1 ounces or 2755 g, at 0832 female was born with Apgars of 9 and 9 and a weight of 4 pounds 3.7 ounces or 1920 g Drains: Pack catheter to gravity Pathology: Placenta and bilateral fallopian tubes Complications: None Condition: Stable The patient was taken to the operating room with IV fluids running and Pack catheter in place. She was placed in the dorsal supine position with a leftward tilt. She was prepped and draped in the normal sterile fashion. A Pfannenstiel skin incision was made with the scalpel approximately 2 cm above the pubic symphysis along the prior incision. The subcutaneous tissue was dissected down to the fascia. The fascia was incised in the midline and extended laterally. The superior aspect of the fascia was grasped with Yesica clamps and the rectus muscles were dissected off the fascia using Connelly scissors and blunt dissection. In a similar fashion, the inferior aspect of the fascia was grasped and the rectus muscles dissected off. The peritoneum was then entered and extended with good visualization of the bowel and bladder. The uterine incision was made in a low-transverse fashion using the scalpel. It was extended laterally in a blunt manner. The was found to be cephalic. The infant was then delivered atraumatically. The cord was clamped and cut. The was handed off to the waiting automatic head sawyer. The second infant was also found to be cephalic, amniotomy performed and the was delivered atraumatically with the cord clamped and cut. The baby was handed off to the other automatic head sawyer. Cord bloods were then collected. The placenta was then delivered spontaneously. The uterus was cleared of all clots and debris. Uterine incision was reapproximated using 0 Vicryl in a running locked fashion. A second layer of 0 Vicryl was used to imbricate the uterine incision. Hemostasis was obtained. Attention was then turned to the left fallopian tube and this was grasped and using electrocautery sequentially cauterize and cut along the broad ligaments and removed the fallopian tube in its entirety. The pedicles were hemostatic. The tube pedicle was additionally cauterized. This was then repeated on the opposite side. Hemostasis was obtained. The peritoneum was then reapproximated using 3-0 Monocryl. The rectus muscles were inspected, cautery was used to obtain hemostasis. The fascia was then reapproximated with 0 Vicryl. The subcutaneous tissue was then irrigated. Bovie cautery was used to obtain hemostasis. The subcutaneous tissue was then reapproximated using 3-0 Monocryl. The skin was closed in a subcuticular fashion using 4-0 Monocryl. The incision was found to be hemostatic. Benzoin and Steri-Strips were then applied. Telfa and ABDs bandage was then placed. An abdominal binder was then placed. The patient tolerated the procedure well. Sponge, lap, needle, and instrument counts were correct throughout the entire procedure. The patient was taken to the recovery room in stable condition. History for MU Definition: * The number of deliveries resulting in a live the patient experienced prior to current hospitalization * The previous delivery of live twins or any live multiple gestation is considered one live event. *If primagravida or nulliparous is documented select zero for the number of previous live births. Live Events: 4
[2016-11-26] MEDS ORDERED: ALBUTEROL SULFATE 2.5 MG/3 ML VIAL.NEB IH PRN ×2 (09:58→10:53)
[2016-11-26] MEDS ORDERED: HYDROmorphone HCL 1 MG/ML DISP.SYRIN IV PRN (10:51)
[2016-11-26] MEDS ORDERED: BISACODYL 10 MG SUPP.RECT RC PRN (10:53)
[2016-11-26] MEDS ORDERED: SIMETHICONE 80 MG TAB.CHEW PO PRN (10:53)
[2016-11-26] MEDS ORDERED: SENNOSIDES 8.6 MG TABLET PO PRN (10:53)
[2016-11-26] MEDS: HYDROmorphone HCL 1 MG/ML DISP.SYRIN IV PRN ×4 (11:07→17:49)
[2016-11-26] MEDS ORDERED: ALPRAZolam 0.5 MG TABLET PO PRN (13:44)
[2016-11-26] MEDS: oxyCODONE HCL/ACETAMINOPHEN 1 TAB TABLET PO PRN ×2 (13:57→20:02)
[2016-11-26 14:14] LABS: Hematocrit 29.7 % (37.0-47.0); Hemoglobin 9.5 gm/dL (12.5-16.0); Mean Cell Volume 80.1 fl (78-100); Mean Corpuscular Hemoglobin 25.6 pg (27-31); Mean Platelet Volume 11.8 fl (6.0-9.5); Neutrophil # 8.1 K/mm3 (1.3-6.0); Platelet Count 158 K/mm3 (150-450); Red Blood Count 3.71 M/mm3 (4.2-5.4); Red Cell Distribution Width 15.3 % (11.5-14.0); White Blood Count 10.1 K/mm3 (4.0-10.5)
[2016-11-26 14:24] LABS: Random Urine Total Protein 149.2 mg/dL (0-12)
[2016-11-26 14:28] LABS: Albumin * 1.6 gm/dl (3.4-5.0); Anion Gap 9.1 mmol/L (6.8-13.8); BUN/Creatinine Ratio 17.4 (9.0-21.6); Bilirubin, Total 0.3 mg/dL (0.0-1.1); Ca. Corrected For Albumin 9.6 mg/dL (8.4-10.2); Carbon Dioxide 27.6 mmol/L (24-32.6); Potassium 4.7 mmol/L (3.4-4.6); Total Protein 5.4 gm/dL (6.2-8.2)
[2016-11-26] MEDS ORDERED: MAGNESIUM SULFATE IN WATER 50 ML IV ONE (14:48)
[2016-11-26] MEDS: MAGNESIUM SULFATE IN WATER 1,000 ML IV SCH (15:20)
[2016-11-26] MEDS: LABETALOL HCL 200 MG TABLET PO SCH ×2 (15:38→21:53)
[2016-11-26] MEDS: ENOXAPARIN SODIUM 40 MG/0.4 ML SYRG SC SCH (16:32)
[2016-11-26] MEDS: KETOROLAC TROMETHAMINE 30 MG/ML VIAL IV PRN ×2 (16:40→23:14)
[2016-11-26] MEDS ORDERED: LABETALOL HCL 200 MG TABLET PO ONE (18:12)
[2016-11-26] MEDS ORDERED: FAMOTIDINE 20 MG TABLET PO SCH (21:00)
[2016-11-26] MEDS: DOCUSATE SODIUM 100 MG CAPSULE PO SCH (21:53)
[2016-11-26] MEDS: FAMOTIDINE 20 MG TABLET PO SCH (21:53)
[2016-11-27] MEDS: oxyCODONE HCL/ACETAMINOPHEN 1 TAB TABLET PO PRN ×6 (00:05→21:37)
[2016-11-27] MEDS: HYDROmorphone HCL 1 MG/ML DISP.SYRIN IV PRN (04:42)
[2016-11-27] MEDS ORDERED: PANTOPRAZOLE SODIUM 40 MG TABLET.EC PO SCH (07:00)
[2016-11-27] MEDS: IBUPROFEN 800 MG TABLET PO PRN ×3 (07:08→21:34)
[2016-11-27] MEDS: PANTOPRAZOLE SODIUM 40 MG TABLET.EC PO SCH (07:38)
--- NOTE | 2016-11-27 09:04 | PN ---
Progess Note - Interim Narrative: 11/27/16 09:03 Subjective: Patient is doing well, ambulating, voiding, tolerating by mouth. Minimal lochia. Pain controlled with medication. Denies headache, blurry vision, epigastric pain. Complains of dry mouth. Objective: Vital signs stable General: no acute distress Abdomen: Soft, nondistended, diffusely tender, fundus firm Skin: Incision is clean, dry and intact Extremities: Minimal edema, nontender Assessment and plan: Postoperative day 1 Feeding: Breast Pain: Controlled with by mouth medication control: Status post permanent sterilization Preeclampsia with severe features: Patient is diuresing well, blood pressures normalizing on labetalol, continue magnesium sulfate until 3 p.m. today Routine postoperative care.
[2016-11-27] MEDS: FAMOTIDINE 20 MG TABLET PO SCH ×2 (10:27→21:34)
[2016-11-27] MEDS: DOCUSATE SODIUM 100 MG CAPSULE PO SCH ×2 (10:27→21:33)
[2016-11-27] MEDS: MAGNESIUM SULFATE IN WATER 1,000 ML IV SCH (10:30)
[2016-11-27] MEDS: LABETALOL HCL 200 MG TABLET PO SCH ×2 (10:31→21:38)
[2016-11-27] MEDS: ENOXAPARIN SODIUM 40 MG/0.4 ML SYRG SC SCH (16:15)
[2016-11-28] MEDS: oxyCODONE HCL/ACETAMINOPHEN 1 TAB TABLET PO PRN ×6 (02:41→23:00)
[2016-11-28] MEDS: IBUPROFEN 800 MG TABLET PO PRN ×3 (04:25→20:58)
[2016-11-28] MEDS: PANTOPRAZOLE SODIUM 40 MG TABLET.EC PO SCH (07:28)
[2016-11-28] MEDS: FAMOTIDINE 20 MG TABLET PO SCH ×2 (08:55→21:00)
[2016-11-28] MEDS: LABETALOL HCL 200 MG TABLET PO SCH ×2 (08:55→21:01)
[2016-11-28] MEDS: DOCUSATE SODIUM 100 MG CAPSULE PO SCH ×2 (08:55→21:00)
--- NOTE | 2016-11-28 09:14 | PN ---
Progess Note - Interim Narrative: 11/28/16 09:12 Subjective: Patient is doing well, ambulating, voiding, tolerating by mouth. Minimal lochia. Pain controlled with medication. Objective: Vital signs stable General: no acute distress Abdomen: Soft, nondistended, diffusely tender, fundus firm Skin: Incision is clean, dry and intact Extremities: Minimal edema, nontender Assessment and plan: Postoperative day 2 Feeding: Breast Pain: Controlled with by mouth medication control: s/p permanent sterilization Preeclampsia with severe features: resolved, BP controlled on labetalol, no symptoms Routine postoperative care.
[2016-11-28] MEDS: ENOXAPARIN SODIUM 40 MG/0.4 ML SYRG SC SCH (16:08)
[2016-11-29] MEDS: oxyCODONE HCL/ACETAMINOPHEN 1 TAB TABLET PO PRN ×3 (03:43→11:23)
[2016-11-29] MEDS: IBUPROFEN 800 MG TABLET PO PRN ×2 (03:46→11:21)
[2016-11-29] MEDS: PANTOPRAZOLE SODIUM 40 MG TABLET.EC PO SCH (08:10)
[2016-11-29] MEDS: LABETALOL HCL 200 MG TABLET PO SCH (08:12)
[2016-11-29] MEDS: DOCUSATE SODIUM 100 MG CAPSULE PO SCH (08:12)
[2016-11-29] MEDS: FAMOTIDINE 20 MG TABLET PO SCH (08:12)
[2016-11-29 08:13] VITALS: BP 147/87
--- NOTE | 2016-11-29 13:13 | PN ---
Subjective - Date and Time Seen Date: 11/29/16 Time: 13:11 Objective - Vitals Vitals: Last Vital Signs Temp 36.6 C 11/29/16 08:21 Pulse 88 11/29/16 08:21 Resp 18 11/29/16 08:21 BP 147/87 11/29/16 08:21 Pulse Ox 97 11/29/16 08:21 Patient denies complaints. Ambulating without difficulty. Tolerating regular diet. Pain well controlled. Lochia wnl. Abdomen - soft, appropriately tender Incision - clean, dry, intact Uterus - firm, at umbilicus -3 No calf tenderness Impression: Post op day #3 s/p repeat section. Twin - delivered. Mild preeclampsia-stable Plan: Routine discharge instructions with the addition of preeclampsia precautions. Follow-up in office in 1 week for blood pressure check. Cauti Physician Documentation - Urinary Catheter Management Uretheral (Pack) Date of Insertion: 11/26/16 Time of Insertion: 06:31 Date of Removal: 11/27/16 Time of Removal: 15:00
== END 2016-11-29 13:30 | disposition home or self-care (01) | DRG 765 ==
LOC: OB 04:54 → MS 14:20 → OB 14:23
PROVIDERS: ADMIT Obstetrics & Gynecology Gynecologic Oncology; ATTEND Obstetrics & Gynecology Gynecologic Oncology
PROC: 0UB70ZZ Excision of Bilateral Fallopian Tubes, Open Approach (ICD-10-PCS; 2016-11-26)
PROC: 4A1HXCZ Monitoring of Products of Conception, Cardiac Rate, External Approach (ICD-10-PCS; 2016-11-26)
PROC: 10D00Z1 Extraction of Products of Conception, Low, Open Approach (ICD-10-PCS; principal; 2016-11-26 08:00)
DX: O14.14 Severe pre-eclampsia complicating childbirth (principal); J45.21 Mild intermittent asthma with (acute) exacerbation; O30.043 Twin pregnancy, dichorionic/diamniotic, third trimester; M54.9 Dorsalgia, unspecified; O09.523 Supervision of elderly multigravida, third trimester; O34.219 Maternal care for unspecified type scar from previous cesarean delivery; Z3A.37 37 weeks gestation of pregnancy; Z37.2 Twins, both liveborn

== ENCOUNTER 2017-10-08 19:02 | Emergency (ER) | payer MEDICAID, OTHER ==
[2017-10-08] MEDS ORDERED: KETOROLAC TROMETHAMINE 60 MG/2 ML VIAL IM ONE ×2 (19:27→19:30)
[2017-10-08] MEDS ORDERED: METOCLOPRAMIDE HCL 5 MG/ML VIAL IM ONE (19:27)
[2017-10-08] MEDS ORDERED: PROCHLORPERAZINE EDISYLATE 5 MG/ML VIAL IM ONE (19:28)
[2017-10-08] MEDS ORDERED: PROCHLORPERAZINE EDISYLATE 5 MG/ML VIAL ONE (19:30)
[2017-10-08] MEDS ORDERED: METOCLOPRAMIDE HCL 5 MG/ML VIAL ONE (19:30)
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
[2017-10-08 21:12] VITALS: BP 98/55
== END 2017-10-08 19:59 | disposition home or self-care (01) ==
LOC: ER 19:02
DX: G43.909 Migraine, unspecified, not intractable, without status migrainosus; F17.200 Nicotine dependence, unspecified, uncomplicated